=== PATIENT | male | born 1965 | race Caucasian/White ===

== ENCOUNTER 2021-01-31 13:10 | Inpatient (IN) | payer MEDICAID, OTHER ==
[~2021-01-31] VITALS: Ht 177.8 cm; Wt 57.2 kg
[2021-01-31] MEDS ORDERED: TETANUS, DIPHTHERIA, PERTUSSIS VAC/PF 0.5ML (>7YR OLD) IM ONE (14:30)
[2021-01-31] MEDS ORDERED: BACITRACIN ZINC OINT UDPKT TOP ONE (14:30)
[2021-01-31 14:52] LABS: BASOPHILS % 0.5 % (0.0-2.0); EOSINOPHILS % 0.1 % (0.0-5.0); HEMATOCRIT. 38.2 % (42.0-52.0); HEMOGLOBIN. 12.7 g/dL (14.0-18.0); LYMPHOCYTES % 25.2 % (20.0-50.0); MEAN CORPUSCULAR VOLUME 90.2 fL (80.0-94.0); MEAN PLATELET VOLUME 6.4 fl (7.4-10.4); MONOCYTES % 6.7 % (2.0-8.0); NEUTROPHILS % 67.5 % (40.0-76.0); PLATELET 370 x1000/uL (130-400); RED BLOOD CELL COUNT 4.23 mill/uL (4.7-6.1)
[2021-01-31 14:56] LABS: CHLORIDE 99 mEq/L (98-107)
[2021-01-31 15:19] LABS: ETHANOL BLOOD 579 mg/dL
[2021-01-31] MEDS ORDERED: BO1 TP (16:21)
[2021-01-31 16:31] LABS: *COCAINE SCREEN URINE NEGATIVE (NEGATIVE); METHADONE URINE SCREEN NEGATIVE (NEGATIVE); OPIATES URINE SCREEN NEGATIVE (NEGATIVE)
[2021-01-31 16:32] LABS: *AMPHETAMINES SCREEN URINE PRESUMTIVE POSITIVE (NEGATIVE); *BARBITURATES SCREEN URINE NEGATIVE (NEGATIVE); CANNABINOID URINE SCREEN NEGATIVE (NEGATIVE); PHENCYCLIDINE URINE SCREEN NEGATIVE (NEGATIVE)
[2021-01-31 16:34] LABS: *BENZODIAZEPINES SCREEN URINE NEGATIVE (NEGATIVE)
[2021-01-31] MEDS ORDERED: IBUPROFEN 600MG TABLET PO ONE (18:30)
[2021-01-31] MEDS ORDERED: ONDANSETRON HCL 4MG/2ML INJ IV STA (21:23)
[2021-01-31] MEDS ORDERED: MORPHINE SULFATE 4 MG/ML CPJ (NOT FOR IM USE) IV STA (21:23)
[2021-01-31] MEDS ORDERED: SODIUM CHLORIDE 0.9% 1,000 ML IV ONE (21:30)
[2021-01-31] MEDS ORDERED: IBUPROFEN 600MG TABLET PO PRN (23:00)
[2021-01-31] MEDS ORDERED: ACETAMINOPHEN 325MG TABLET PO PRN (23:00)
[2021-02-01] VITALS (13 sets, daily range): BP systolic 110–149; BP diastolic 46–89
[2021-02-01] MEDS: TRAZODONE HCL 50MG TABLET PO PRN ×2 (01:16→22:25)
[2021-02-01 06:44] LABS: CHLORIDE 99 mEq/L (98-107)
[2021-02-01 06:58] LABS: BASOPHILS % 0.9 % (0.0-2.0); EOSINOPHILS % 0.7 % (0.0-5.0); HEMATOCRIT. 35.1 % (42.0-52.0); HEMOGLOBIN. 11.7 g/dL (14.0-18.0); MEAN CORPUSCULAR VOLUME 90.4 fL (80.0-94.0); MONOCYTES % 5.6 % (2.0-8.0); NEUTROPHILS % 63.8 % (40.0-76.0); PLATELET 289 x1000/uL (130-400); RED BLOOD CELL COUNT 3.89 mill/uL (4.7-6.1)
[2021-02-01] MEDS: HEPARIN 5000 UNITS/ML VIAL SUBCUT SCH ×2 (09:20→22:24)
[2021-02-01] MEDS: LIDOCAINE 5% PATCH TOP SCH (10:05)
[2021-02-01] MEDS: ONDANSETRON HCL 4MG/2ML INJ IV PRN ×2 (10:14→22:58)
[2021-02-01] MEDS ORDERED: IBUP-2029 PO (10:15)
[2021-02-01] MEDS ORDERED: FAMO20TA8 PO (10:15)
[2021-02-01] MEDS ORDERED: TOPUD PO (10:15)
[2021-02-01] MEDS ORDERED: MAGNESIUM 1 G PREMIX 100 ML IV NR (12:00)
[2021-02-01] MEDS ORDERED: FAMOTIDINE 20MG TABLET PO SCH (21:00)
[2021-02-01] MEDS ORDERED: CHLORDIAZEPOXIDE 25MG CAPSULE PO NR (22:49)
[2021-02-01] MEDS: CHLORDIAZEPOXIDE 25MG CAPSULE PO SCH (22:59)
[2021-02-02] VITALS (9 sets, daily range): BP systolic 105–128; BP diastolic 66–98
[2021-02-02] MEDS ORDERED: *PATIENT'S OWN MEDICATION STORAGE XX SCH (04:45)
[2021-02-02 05:56] LABS: CHLORIDE 95 mEq/L (98-107)
[2021-02-02 06:10] LABS: EOSINOPHILS % 2.3 % (0.0-5.0); HEMATOCRIT. 35.1 % (42.0-52.0); HEMOGLOBIN. 11.4 g/dL (14.0-18.0); LYMPHOCYTES % 29.1 % (20.0-50.0); MEAN CORPUSCULAR HEMOGLOBIN 29.3 pg (28.0-32.0); MEAN CORPUSCULAR VOLUME 90.2 fL (80.0-94.0); MEAN PLATELET VOLUME 7.1 fl (7.4-10.4); MONOCYTES % 4.6 % (2.0-8.0); PLATELET 246 x1000/uL (130-400); RED BLOOD CELL COUNT 3.89 mill/uL (4.7-6.1); RED CELL DISTRIBUTION WIDTH 17.1 % (11.6-14.6)
[2021-02-02] MEDS: CHLORDIAZEPOXIDE 25MG CAPSULE PO SCH (06:19)
[2021-02-02] MEDS: LIDOCAINE 5% PATCH TOP SCH (09:11)
[2021-02-02] MEDS: HEPARIN 5000 UNITS/ML VIAL SUBCUT SCH (09:12)
[2021-02-02] MEDS ORDERED: CHLORDIAZEPOXIDE 25MG CAPSULE PO SCH (15:00)
[2021-02-02] MEDS ORDERED: CHLO25CA10 MT (16:02)
[2021-02-02] MEDS ORDERED: ATORVASTATIN CALCIUM 10MG TABLET PO SCH (21:00)
== END 2021-02-02 17:00 | disposition home or self-care (01) | DRG 280 ==
LOC: ER 13:10 → 5EST 22:41 → ENRESERV 23:20 → 5EST 02-01 00:25
PROVIDERS: ADMIT Internal Medicine; ATTEND Internal Medicine
DX: K70.10 Alcoholic hepatitis without ascites (principal); D64.9 Anemia, unspecified; E44.0 Moderate protein-calorie malnutrition; E78.5 Hyperlipidemia, unspecified; E83.42 Hypomagnesemia; F10.229 Alcohol dependence with intoxication, unspecified; F15.10 Other stimulant abuse, uncomplicated; F17.200 Nicotine dependence, unspecified, uncomplicated; G92 Toxic encephalopathy; I10 Essential (primary) hypertension; K76.0 Fatty (change of) liver, not elsewhere classified; S01.81XA Laceration without foreign body of other part of head, initial encounter; S22.31XA Fracture of one rib, right side, initial encounter for closed fracture; T79.7XXA Traumatic subcutaneous emphysema, initial encounter; Z79.899 Other long term (current) drug therapy; W18.39XA Other fall on same level, initial encounter; Y93.89 Activity, other specified; Y92.89 Other specified places as the place of occurrence of the external cause; Y99.8 Other external cause status; F10.239 Alcohol dependence with withdrawal, unspecified; Z68.1 Body mass index [BMI] 19.9 or less, adult
CPT/HCPCS: 36415; 71045; 71100; 71250; 80053; 80061; 80305; 80320; 83735; 85025; 90715; 93005; 93306; 97162; 97166; 99285; A6261; J1644; J2270; J2405; J3475; J7030; G0480